=== PATIENT | male | born 1975 | race Caucasian/White ===

== ENCOUNTER 2022-11-12 09:29 | Emergency (ER) | payer OTHER ==
[2022-11-12 09:34] VITALS: BP 127/82; PULSE 60; RESP 16; TEMP 98.3; BMI 29.2
[2022-11-12] MEDS ORDERED: IBUPROFEN 600 MG TABLET (FP) PO ONE ×2 (10:21→10:25)
== END 2022-11-12 10:27 | disposition home or self-care (01) ==
LOC: JERFT 09:29
DX: S46.811A Strain of other muscles, fascia and tendons at shoulder and upper arm level, right arm, initial encounter (principal); X50.0XXA Overexertion from strenuous movement or load, initial encounter
CPT/HCPCS: 99283-25